=== PATIENT | female | born 2000 | race African-American/Black ===

== ENCOUNTER 2024-11-23 14:59 | Emergency (ER) | payer SELFPAY ==
[2024-11-23] MEDS ORDERED: Ketorolac Tromethamine 30 MG (1 mL) VIAL ONE (15:31)
[2024-11-23] MEDS ORDERED: Methocarbamol 500 MG TAB ONE (15:31)
[2024-11-23 15:37] LABS: Bacteria/HPF Rare-Few HPF (None Seen); Bilirubin Negative (Negative); Blood, Urine Negative (Negative); CAUTI Indications for Culture Pelvic or flank pain; Clarity Hazy (Clear); Glucose, Urine (Dipstick) Negative (Negative); Ketone, Urine Negative (Negative); Leukocyte Negative (Negative); Mucous/LPF 2+ LPF (<2+); Nitrite Negative (Negative); Protein, Urine (Dipstick) Negative (Neg-Trace); RBC/HPF 0-3 HPF (0-3); Specific Gravity, Urine 1.027 (1.002-1.036); Urobilinogen 0.2 mg/dL (Less than 2); WBC/HPF None Seen HPF (0-3)
[2024-11-23 15:38] LABS: Urine Culture Reflex No No
== END 2024-11-23 17:05 | disposition home or self-care (01) ==
LOC: MADERS 14:59
DX: M54.50 Low back pain, unspecified (principal)
CPT/HCPCS: 72100; 81001; 96372; 99283; J1885